=== PATIENT | male | born 1970 | race Caucasian/White ===

== ENCOUNTER 2016-10-06 15:00 | Emergency (ER) | payer MEDICARE, MEDICAID | END 2016-10-06 15:27 | disposition left against medical advice (07) | LOC: M ED 15:00 | DX: R68.89 Other general symptoms and signs (principal); Z53.20 Procedure and treatment not carried out because of patient's decision for unspecified reasons ==

== ENCOUNTER → 2016-10-09 | Outpatient (CLI) | payer MEDICARE | LOC: M SMT 08:04 | PROVIDERS: ATTEND Urology | DX: E29.1 Testicular hypofunction (principal) ==

== ENCOUNTER → 2016-12-06 | Outpatient (CLI) | payer MEDICARE ==
--- NOTE | 2016-12-07 09:17 | REP ---
MR CERVICAL SPINE WITHOUT CONTRAST: HISTORY: Neck pain. Facet hypertrophy is present in the left at the C3-4 level. This produces minimal narrowing of the left C3 neural foramen. The right C3 neural foramina is patent. A disc bulge and small central disc protrusion are present at the C4-5 level. There is minimal spinal cord compression. Bilateral uncinate process hypertrophy is present. This produces mild narrowing of the C4 neural foramina. A disc bulge and small left paracentral disc protrusion with associated osteophyte formation are present at the C5-6 level. There is minimal spinal cord compression. Bilateral uncinate process hypertrophy is present. This produces mild and moderate narrowing of the right and left C5 neural foramina respectively. A disc bulge and small central disc protrusion are present at the C6-7 level. There is minimal spinal cord compression. Bilateral uncinate process hypertrophy is present. This produces mild and moderate narrowing of the right and left C6 neural foramina respectively. A small left paracentral and intraforaminal disc protrusion are present at the C7-T1 level. There is minimal effacement of the thecal sac without spinal cord compression. Uncinate process hypertrophy is present on the left. There is mild narrowing of the left C7 neural foramen. The right C7 neural foramen is patent. There is no other disc bulge or herniation. The remaining neural foramina are patent. The spinal cord is normal in signal intensity. The C5-6 and C6-7 intervertebral discs are decreased in height consistent with disc degeneration. Normal signal intensity is present in the cervical vertebral bodies. A hemangioma is present in the T1 vertebral body. IMPRESSION: There is cervical spondylosis at the C3-4 through C7-T1 levels most significant at the C4-5 through C6-7 levels where there is minimal spinal cord compression. Signed by Bhaskar Claire MD 12/07/2016 09:28 A
--- NOTE | 2016-12-07 09:24 | REP ---
MR LUMBAR SPINE WITHOUT CONTRAST: HISTORY: Back pain. Decreased signal intensity on T2-weighted images is present in the L3-4 intervertebral disc. The disc is decreased in height. These findings are consistent with disc degeneration. There is no disc bulge or herniation at the L1-2, L2-3 and L5-S1 levels. The nerves exit the neural foramina without compression. A diffuse disc bulge is present at the L3-4 level. There is minimal compression of the thecal sac. The L3 nerves exit the neural foramina without compression. A diffuse disc bulge is present at the L4-5 level. There is minimal compression of the thecal sac. The L4 nerves exit the neural foramina without compression. The conus medullaris is normal in appearance terminating at the level of the T12-L1 intervertebral disc. Normal signal intensity is present in the lumbar vertebral bodies. IMPRESSION: Diffuse disc bulges at the L3-4 and L4-5 levels with minimal thecal sac compression. Signed by Bhaskar Claire MD 12/07/2016 09:28 A
== END ==
LOC: M RAD 16:25
PROVIDERS: ATTEND Physician Assistant Medical
DX: M47.892 Other spondylosis, cervical region (principal); M51.26 Other intervertebral disc displacement, lumbar region

== ENCOUNTER 2017-03-13 19:01 | Emergency (ER) | payer MEDICARE, MEDICAID ==
[~2017-03-13] VITALS: Ht 165.1 cm; Wt 57.5 kg
[2017-03-13] MEDS ORDERED: SERT-138 (19:12)
[2017-03-13] MEDS ORDERED: OXYC-517 (19:12)
[2017-03-13] MEDS ORDERED: PROAAER10 (19:12)
[2017-03-13] MEDS ORDERED: FAMO1TAB11 (19:12)
[2017-03-13] MEDS ORDERED: MONT10TA2 (19:12)
[2017-03-13] MEDS ORDERED: SPIR1CAP (19:12)
[2017-03-13] MEDS ORDERED: LISI-538 (19:12)
[2017-03-13] MEDS ORDERED: ACYC400T (19:12)
[2017-03-13] MEDS ORDERED: ROPI3TAB (19:12)
[2017-03-13] MEDS ORDERED: ALBU17IN (19:12)
[2017-03-13] MEDS ORDERED: ZANA4TAB (19:12)
[2017-03-13] MEDS ORDERED: CLON0.5T (19:12)
--- NOTE | 2017-03-13 19:58 | REP ---
Clinical: Pain without trauma . Technique: AP, lateral, bilateral oblique views of the right elbow. Findings: No acute fracture or dislocation is appreciated. Joint spaces and surrounding soft tissues appear normal. Lateral view demonstrates normal positioning to the anterior and posterior fat pads without evidence for effusion/hemarthrosis. No subcutaneous emphysema or foreign body identified. Impression: Normal age appropriate right elbow radiographs. Signed by Emery Nails MD 03/13/2017 07:49 P
[2017-03-13 20:21] VITALS: BP 137/74
== END 2017-03-13 20:26 | disposition home or self-care (01) ==
LOC: M ED 19:01
DX: S53.431A Radial collateral ligament sprain of right elbow, initial encounter (principal); X58.XXXA Exposure to other specified factors, initial encounter; Y92.019 Unspecified place in single-family (private) house as the place of occurrence of the external cause; Y93.89 Activity, other specified; Y99.8 Other external cause status; J45.909 Unspecified asthma, uncomplicated; I10 Essential (primary) hypertension; F17.210 Nicotine dependence, cigarettes, uncomplicated; Z79.899 Other long term (current) drug therapy; Z85.6 Personal history of leukemia

== ENCOUNTER → 2017-03-30 | Outpatient (CLI) | payer MEDICARE, MEDICAID ==
[~2017-03-30] MED LIST: ACYC400T; ALBU17IN; CLON0.5T; FAMO1TAB11; LISI-538; MONT10TA2; OXYC-517; PROAAER10; ROPI3TAB; SERT-138; SPIR1CAP; ZANA4TAB
[2017-03-30 13:24] LABS: BASO % 0.5 % (0.0-1.0); EOS # 0.1 K/mm3 (0.0-0.50); EOS % 0.9 % (0.0-3.0); LYMPH # 2.5 K/mm3 (1.5-4.5); LYMPH % 24.3 % (24.0-44.0); MEAN CORPUSCULAR HEMOGLOBIN 33.8 pg (27.0-33.0); MEAN CORPUSCULAR HGB CONC 35.5 g/dl (32.0-36.5); MEAN CORPUSCULAR VOLUME 95.3 fl (80.0-96.0); MONO # 0.7 K/mm3 (0.0-0.8); MONO % 6.7 % (0.0-5.0); NEUTROPHILS # 6.7 K/mm3 (1.8-7.7); NEUTROPHILS % 64.8 % (36.0-66.0); WHITE BLOOD COUNT 10.2 K/mm3 (4.0-10.0)
[2017-03-30 14:09] LABS: ALBUMIN 3.6 GM/DL (3.2-5.2); ALBUMIN/GLOBULIN RATIO 1.33 (1.00-1.93); ALKALINE PHOSPHATASE 89 U/L (45-117); ALT/SGPT 19 U/L (12-78); ANION GAP 5 MEQ/L (8-16); AST/SGOT 16 U/L (15-37); BILIRUBIN,TOTAL 0.3 MG/DL (0.2-1.0); BLOOD UREA NITROGEN 17 MG/DL (7-18); CALCIUM LEVEL 8.8 MG/DL (8.5-10.1); CARBON DIOXIDE LEVEL 27 MEQ/L (21-32); CHLORIDE LEVEL 102 MEQ/L (98-107); CREATININE FOR GFR 0.65 MG/DL (0.70-1.30); GLOMERULAR FILTRATION RATE > 60.0 (>60); GLUCOSE, FASTING 181 MG/DL (70-105); POTASSIUM SERUM 4.4 MEQ/L (3.5-5.1); SODIUM LEVEL 134 MEQ/L (136-145); TOTAL PROTEIN 6.3 GM/DL (6.4-8.2)
== END ==
LOC: M LAB 12:38
PROVIDERS: ATTEND Physician Assistant Medical
DX: C95.11 Chronic leukemia of unspecified cell type, in remission (principal)

== ENCOUNTER → 2017-12-31 | Outpatient (CLI) | payer MEDICAID, MEDICARE ==
[2017-12-31 11:14] LABS: HEMATOCRIT 45.3 % (42.0-52.0); MEAN CORPUSCULAR HEMOGLOBIN 32.6 pg (27.0-33.0); MEAN CORPUSCULAR HGB CONC 35.3 g/dl (32.0-36.5); MEAN CORPUSCULAR VOLUME 92.3 fl (80.0-96.0); PLATELET COUNT, AUTOMATED 298 10^3/uL (150-450); RED BLOOD COUNT 4.91 10^6/uL (4.30-6.10); WHITE BLOOD COUNT 9.3 10^3/uL (4.0-10.0)
[2017-12-31 11:51] LABS: ERYTHROCYTE SEDIMENTATION RATE 7 mm/hr (0-15)
[2017-12-31 12:26] LABS: ALBUMIN 3.7 GM/DL (3.2-5.2); ALBUMIN/GLOBULIN RATIO 1.09 (1.00-1.93); ALKALINE PHOSPHATASE 75 U/L (45-117); ALT/SGPT 14 U/L (12-78); ANION GAP 3 MEQ/L (8-16); AST/SGOT 14 U/L (7-37); BILIRUBIN,TOTAL 0.4 MG/DL (0.2-1.0); BLOOD UREA NITROGEN 12 MG/DL (7-18); CALCIUM LEVEL 9.1 MG/DL (8.5-10.1); CARBON DIOXIDE LEVEL 30 MEQ/L (21-32); CHLORIDE LEVEL 103 MEQ/L (98-107); CHOLESTEROL LEVEL 253 MG/DL (<200); CHOLESTEROL RISK RATIO 5.382 (<5); CREATININE FOR GFR 0.65 MG/DL (0.70-1.30); GLOMERULAR FILTRATION RATE > 60.0 (>60); GLUCOSE, FASTING 113 MG/DL (70-100); HDL CHOLESTEROL 47 MG/DL (>40); IRON (FE) 76 UG/DL (65-175); LDL CHOLESTEROL 177.6 MG/DL (<100); NON-HDL-C 206 MG/DL; PERCENT SATURATION 25.4 % (19.7-50.0); POTASSIUM SERUM 4.6 MEQ/L (3.5-5.1); SODIUM LEVEL 136 MEQ/L (136-145); TOTAL IRON BINDING CAPACITY 299 UG/DL (250-450); TOTAL PROTEIN 7.1 GM/DL (6.4-8.2); TRIGLYCERIDES LEVEL 142 MG/DL (<150)
== END ==
LOC: M LAB 10:27
DX: D64.9 Anemia, unspecified (principal); R53.83 Other fatigue; E03.9 Hypothyroidism, unspecified
CPT/HCPCS: 71046

== ENCOUNTER → 2018-01-03 | Outpatient (CLI) | payer MEDICARE, MEDICAID | LOC: M OUTALCOH 11:20 | DX: F12.10 Cannabis abuse, uncomplicated (principal) | CPT/HCPCS: H0001 ==

== ENCOUNTER → 2018-01-14 | Outpatient (RCR) | payer MEDICARE, MEDICAID | LOC: M OUTALCOH 13:13 | DX: F12.20 Cannabis dependence, uncomplicated (principal); F17.200 Nicotine dependence, unspecified, uncomplicated | CPT/HCPCS: 90834 ==

== ENCOUNTER 2018-01-24 15:00 | Outpatient (RCR) | payer MEDICARE, MEDICAID | END 2018-02-14 | LOC: M OUTALCOH 02-14 13:00 | DX: F12.20 Cannabis dependence, uncomplicated (principal); F17.200 Nicotine dependence, unspecified, uncomplicated | CPT/HCPCS: 90834 ==

== ENCOUNTER 2018-02-22 14:37 | Outpatient (RCR) | payer MEDICARE, MEDICAID | END 2018-03-16 | LOC: M OUTALCOH 14:37 | DX: F12.20 Cannabis dependence, uncomplicated (principal); F17.200 Nicotine dependence, unspecified, uncomplicated | CPT/HCPCS: 90832 ==

== ENCOUNTER 2018-03-21 11:41 | Outpatient (RCR) | payer MEDICARE, MEDICAID | END 2018-04-16 | LOC: M OUTALCOH 03-27 08:30 | DX: F12.20 Cannabis dependence, uncomplicated (principal); F17.200 Nicotine dependence, unspecified, uncomplicated | CPT/HCPCS: 90834 ==

== ENCOUNTER 2018-05-28 16:45 | Outpatient (RCR) | payer MEDICARE, MEDICAID | END 2018-06-16 | LOC: M OUTALCOH 16:45 | DX: F12.20 Cannabis dependence, uncomplicated (principal); F17.200 Nicotine dependence, unspecified, uncomplicated | CPT/HCPCS: 90832 ==

== ENCOUNTER 2018-06-25 14:52 | Outpatient (RCR) | payer MEDICARE, MEDICAID | END 2018-07-17 | LOC: M OUTALCOH 07-16 11:00 | DX: F12.20 Cannabis dependence, uncomplicated (principal); F17.200 Nicotine dependence, unspecified, uncomplicated | CPT/HCPCS: 90834 ==

== ENCOUNTER 2018-07-30 11:00 | Outpatient (RCR) | payer MEDICARE, MEDICAID | END 2018-08-16 | LOC: M OUTALCOH 11:00 | DX: F12.20 Cannabis dependence, uncomplicated (principal); F17.200 Nicotine dependence, unspecified, uncomplicated | CPT/HCPCS: 90834 ==

== ENCOUNTER 2018-08-28 08:00 | Outpatient (RCR) | payer MEDICARE, MEDICAID ==
[~2018-08-28 08:00] MED LIST changes: -CLON0.5T; +CLON0.5T8; -ROPI3TAB; +ROPI3TAB3
== END 2018-09-16 ==
LOC: M OUTALCOH 08:00
PROVIDERS: ATTEND Psychiatry & Neurology Psychiatry
DX: F12.20 Cannabis dependence, uncomplicated (principal); F17.200 Nicotine dependence, unspecified, uncomplicated

== ENCOUNTER → 2019-05-30 | Outpatient (CLI) | payer MEDICARE, MEDICAID ==
[2019-05-30 10:32] LABS: HEMATOCRIT 48.2 % (42.0-52.0); HEMOGLOBIN 16.6 g/dl (13.5-17.5); MEAN CORPUSCULAR HEMOGLOBIN 31.9 pg (27.0-33.0); MEAN CORPUSCULAR HGB CONC 34.4 g/dl (32.0-36.5); MEAN CORPUSCULAR VOLUME 92.7 fl (80.0-96.0); PLATELET COUNT, AUTOMATED 249 10^3/uL (150-450); WHITE BLOOD COUNT 7.9 10^3/uL (4.0-10.0)
[2019-05-30 11:13] LABS: ALT/SGPT 17 U/L (12-78); BILIRUBIN,TOTAL 0.7 MG/DL (0.2-1.0); BLOOD UREA NITROGEN 10 MG/DL (7-18); CARBON DIOXIDE LEVEL 27 MEQ/L (21-32); CHLORIDE LEVEL 102 MEQ/L (98-107); CHOLESTEROL LEVEL 276 MG/DL (<200); CHOLESTEROL RISK RATIO 4.119 (<5); CREATININE FOR GFR 0.75 MG/DL (0.70-1.30); GLOMERULAR FILTRATION RATE > 60.0 (>60); GLUCOSE, FASTING 104 MG/DL (70-100); HDL CHOLESTEROL 67 MG/DL (>40); LDL CHOLESTEROL 194 MG/DL (<100); NON-HDL-C 209 MG/DL; POTASSIUM SERUM 5.2 MEQ/L (3.5-5.1); SODIUM LEVEL 136 MEQ/L (136-145); THYROXINE (T4) 9.4 UG/DL (4.5-12.0); TOTAL 25(OH) VITAMIN D 39.5 NG/ML (30.0-100.0); TOTAL PROTEIN 7.3 GM/DL (6.4-8.2); TRIGLYCERIDES LEVEL 74 MG/DL (<150)
[2019-05-30 11:14] LABS: TESTOSTERONE 375 NG/DL (241-827); TOTAL T3 128.8 NG/DL (60.0-181.0)
== END ==
LOC: M LAB 09:58
PROVIDERS: ATTEND Family Medicine
DX: I10 Essential (primary) hypertension (principal); R53.83 Other fatigue; E03.9 Hypothyroidism, unspecified

== ENCOUNTER → 2020-01-12 | Outpatient (REF) | payer MEDICARE ==
[~2020-01-12] MED LIST changes: +CLON0.5T2; -CLON0.5T8; -MONT10TA2; +MONT10TA4
[2020-01-12 12:15] LABS: BASO # 0.1 10^3/uL (0.0-0.2); BASO % 1.4 % (0.0-1.0); EOS # 0.1 10^3/uL (0.0-0.5); EOS % 1.7 % (0.0-3.0); HEMATOCRIT 48.8 % (42.0-52.0); HEMOGLOBIN 16.5 g/dl (13.5-17.5); LYMPH # 2.5 10^3/uL (1.5-5.0); LYMPH % 38.9 % (24.0-44.0); MEAN CORPUSCULAR HEMOGLOBIN 31.3 pg (27.0-33.0); MEAN CORPUSCULAR HGB CONC 33.8 g/dl (32.0-36.5); MEAN CORPUSCULAR VOLUME 92.4 fl (80.0-96.0); MONO # 0.8 10^3/uL (0.0-0.8); MONO % 11.8 % (0.0-5.0); NEUTROPHILS # 2.9 10^3/uL (1.5-8.5); NEUTROPHILS % 45.9 % (36.0-66.0); PLATELET COUNT, AUTOMATED 285 10^3/uL (150-450); RED BLOOD COUNT 5.28 10^6/uL (4.30-6.10); WHITE BLOOD COUNT 6.4 10^3/uL (4.0-10.0)
[2020-01-12 12:28] LABS: ALBUMIN 4.2 GM/DL (3.2-5.2); ALT/SGPT 23 U/L (12-78); BILIRUBIN,TOTAL 0.5 MG/DL (0.2-1.0); BLOOD UREA NITROGEN 7 MG/DL (7-18); CALCIUM LEVEL 9.8 MG/DL (8.5-10.1); CARBON DIOXIDE LEVEL 30 MEQ/L (21-32); CHLORIDE LEVEL 102 MEQ/L (98-107); CHOLESTEROL LEVEL 282 MG/DL (<200); CHOLESTEROL RISK RATIO 5.423 (<5); FREE T4 1.08 NG/DL (0.76-1.46); GLOMERULAR FILTRATION RATE > 60.0 (>56); GLUCOSE, FASTING 107 MG/DL (70-100); HDL CHOLESTEROL 52 MG/DL (>40); LDL CHOLESTEROL 203 MG/DL (<100); NON-HDL-C 230 MG/DL; POTASSIUM SERUM 5.5 MEQ/L (3.5-5.1); SODIUM LEVEL 135 MEQ/L (136-145); TOTAL PROTEIN 7.9 GM/DL (6.4-8.2); TRIGLYCERIDES LEVEL 134 MG/DL (<150)
[2020-01-14 10:51] LABS: HEPATITIS B SURFACE ANTIGEN NEGATIVE (NEGATIVE)
[2020-01-14 11:19] LABS: HEP C VIRUS AB INDEX SOURCE PT 0.1 INDEX (0.0-0.8)
[2020-01-14 11:20] LABS: HIV SCREEN CENTAUR SOURCE NEGATIVE (NEGATIVE)
== END ==
LOC: M SFHCPLAZ 10:04
PROVIDERS: ATTEND Physician Assistant Medical
DX: I10 Essential (primary) hypertension (principal); N52.1 Erectile dysfunction due to diseases classified elsewhere; Z13.220 Encounter for screening for lipoid disorders; Z85.6 Personal history of leukemia
CPT/HCPCS: 36415; 80053; 80061; 84439; 84443; 85025; 86803; 87340; 87389; G0463

== ENCOUNTER → 2020-11-30 | Outpatient (REF) | payer MEDICARE, MEDICAID ==
[~2020-11-30] MED LIST changes: -LISI-538; +LISI20TA33; +MONT10TA10; -MONT10TA4
== END ==
LOC: M LAB REF 11:33
PROVIDERS: ATTEND Nurse Practitioner Adult Health
DX: N52.9 Male erectile dysfunction, unspecified (principal)

== ENCOUNTER → 2021-03-04 | Outpatient (REF) | payer MEDICARE, MEDICAID ==
[~2021-03-04] MED LIST changes: +ACYC1TAB; -ACYC400T
[2021-03-07 14:49] LABS: HEPATITIS A ANTIBODY IGM NEGATIVE (NEGATIVE); HEPATITIS B CORE ANTIBODY IGM NEGATIVE (NEGATIVE); HEPATITIS B SURFACE ANTIGEN NEGATIVE (NEGATIVE); HEPATITIS C VIRUS ABY INDEX < 0.0 INDEX (<0.8)
== END ==
LOC: M LAB REF 11:37
PROVIDERS: ATTEND Nurse Practitioner Adult Health
DX: R74.01 Elevation of levels of liver transaminase levels (principal)

== ENCOUNTER → 2021-03-30 | Outpatient (CLI) | payer MEDICARE, MEDICAID ==
--- NOTE | 2021-03-30 09:40 | REP ---
INDICATION: ELEVATED LFT'S COMPARISON: None. TECHNIQUE: Real time melissa scale ultrasound examination using curved array transducer. FINDINGS: Liver is normal in contour, size, and echogenicity without focal hepatic lesions identified. Incidental 10 mm hyperechoic focus in the right lobe likely small hemangioma. Pancreas is incompletely evaluated due to interposed bowel gas. The gallbladder is normal and without gallstones, wall thickening, or pericholecystic fluid. No biliary ductal dilatation is appreciated and the common bile duct measures 2.3 mm diameter. Right kidney is normal in reniform shape without hydronephrosis and measures 10.8 x 5.2 x 4.0 cm. No ascites in the visualized right upper quadrant. IMPRESSION: Essentially normal limited right upper quadrant ultrasound <Electronically signed by Emery Nails > 03/30/21 [id number]
== END ==
LOC: M RAD 08:32
PROVIDERS: ATTEND Nurse Practitioner Adult Health
DX: R74.01 Elevation of levels of liver transaminase levels (principal)

== ENCOUNTER → 2021-06-07 | Outpatient (REF) | payer MEDICARE, MEDICAID ==
[2021-06-08 11:35] LABS: HEMATOCRIT 47.7 % (42.0-52.0)
[2021-06-08 12:04] LABS: PERCENT SATURATION 30.4 % (19.7-50.0)
== END ==
LOC: M LAB REF 11:00
PROVIDERS: ATTEND Nurse Practitioner Adult Health
DX: R74.01 Elevation of levels of liver transaminase levels (principal)

== ENCOUNTER → 2021-09-07 | Outpatient (REF) | payer MEDICARE, MEDICAID ==
[2021-09-13 03:08] LABS: ANTINUCLEAR ANTIBODIES DIRECT Negative (Negative); COPPER PLASMA 147 ug/dL (69-132); SJOGREN'S ANTI SS-A <0.2 AI (0.0-0.9); SJOGREN'S ANTI SS-B <0.2 AI (0.0-0.9)
== END ==
LOC: M LAB REF 11:57
PROVIDERS: ATTEND Nurse Practitioner Adult Health
DX: R74.01 Elevation of levels of liver transaminase levels (principal); Z85.6 Personal history of leukemia

== ENCOUNTER → 2021-09-07 | Outpatient (CLI) | payer MEDICARE, MEDICAID ==
--- NOTE | 2021-09-07 10:52 | REP ---
INDICATION: COUGH, SMOKER COMPARISON: 12/31/2017 TECHNIQUE: PA and lateral. FINDINGS: The mediastinum and cardiac silhouette are normal. The lung camacho are clear and without acute consolidation, effusion, or pneumothorax. The skeletal structures are intact and normal. IMPRESSION: No acute cardiopulmonary process. <Electronically signed by Emery Nails > 09/07/21 [id number]
== END ==
LOC: M WUC 09:57
PROVIDERS: ATTEND Nurse Practitioner Adult Health
DX: R05.9 Cough, unspecified (principal); R73.01 Impaired fasting glucose; Z85.6 Personal history of leukemia

== ENCOUNTER → 2021-10-12 | Outpatient (CLI) | payer MEDICARE, MEDICAID ==
[~2021-10-12] MED LIST changes: -MONT10TA10; +MONT10TA97
== END ==
LOC: M PLAIMG 08:44
PROVIDERS: ATTEND Nurse Practitioner Adult Health
DX: R05.3 Chronic cough (principal)

== ENCOUNTER → 2021-11-02 | Outpatient (CLI) | payer MEDICARE, MEDICAID ==
[2021-11-02 15:34] LABS: ALBUMIN 3.8 GM/DL (3.2-5.2); BILIRUBIN,DIRECT 0.1 MG/DL (0.0-0.2); BILIRUBIN,TOTAL 0.4 MG/DL (0.2-1.0); FREE T4 0.9 NG/DL (0.76-1.46); PERCENT SATURATION 29.3 % (19.7-50.0); THYROID STIMULATING HORMONE 1.39 uIU/ML (0.358-3.740); TOTAL PROTEIN 7.3 GM/DL (6.4-8.2)
[2021-11-10 11:08] LABS: ANCA-ATYPICAL <1:20 titer (Neg:<1:20); ANTI-MITOCHONDRIAL ANTIBODY 28.5 Units (0.0-20.0); ANTINUCLEAR ANTIBODIES DIRECT Negative (Negative); CYTOPLASMIC NEUTROP AB ANCA-C <1:20 titer (Neg:<1:20); LIVER-KIDNEY MICROSOMAL ABY <20.1 Units (0.0-20.0); PERINUCLEAR AB ANCA-P <1:20 titer (Neg:<1:20)
== END ==
LOC: M RAD 14:28
PROVIDERS: ATTEND Internal Medicine Gastroenterology
DX: R79.0 Abnormal level of blood mineral (principal); Z79.899 Other long term (current) drug therapy

== ENCOUNTER → 2021-11-18 | Outpatient (CLI) | payer MEDICARE, MEDICAID | LOC: M LAB 13:20 | PROVIDERS: ATTEND Internal Medicine Gastroenterology | DX: R79.0 Abnormal level of blood mineral (principal) ==

== ENCOUNTER → 2022-01-20 | Outpatient (CLI) | payer MEDICARE, MEDICAID | LOC: M RAD 07:57 | PROVIDERS: ATTEND Internal Medicine Gastroenterology | DX: R74.8 Abnormal levels of other serum enzymes (principal); K83.01 Primary sclerosing cholangitis ==

== ENCOUNTER → 2022-02-13 | Outpatient (CLI) | payer MEDICARE, MEDICAID ==
[2022-02-13 15:57] LABS: HEMATOCRIT 42.7 % (42.0-52.0); HEMOGLOBIN 14.8 g/dl (13.5-17.5); MEAN CORPUSCULAR HEMOGLOBIN 33.3 pg (27.0-33.0); MEAN CORPUSCULAR HGB CONC 34.7 g/dl (32.0-36.5); PLATELET COUNT, AUTOMATED 272 10^3/uL (150-450); RED BLOOD COUNT 4.45 10^6/uL (4.30-6.10); WHITE BLOOD COUNT 12.9 10^3/uL (4.0-10.0)
[2022-02-13 16:09] LABS: INR 0.88; PROTHROMBIN TIME 12.3 SECONDS (12.7-14.5)
== END ==
LOC: M LAB 15:22
PROVIDERS: ATTEND Internal Medicine Gastroenterology
DX: R79.0 Abnormal level of blood mineral (principal)

== ENCOUNTER → 2022-02-17 | Outpatient (CLI) | payer MEDICARE, MEDICAID ==
[~2022-02-17] MED LIST changes: +LIDOCAINE 1% MDV 20ML VIAL As Ordered ONE
[2022-02-17 10:00] VITALS: BP 145/87
== END ==
LOC: M IRPRO 07:46
PROVIDERS: ATTEND Internal Medicine Gastroenterology
DX: R79.0 Abnormal level of blood mineral (principal); K74.3 Primary biliary cirrhosis

== ENCOUNTER → 2022-02-25 | Outpatient (CLI) | payer MEDICARE, MEDICAID ==
[~2022-02-25] MED LIST changes: -LIDOCAINE 1% MDV 20ML VIAL As Ordered ONE
[2022-02-25 16:28] LABS: PERCENT SATURATION 21.9 % (19.7-50.0)
== END ==
LOC: M LAB 14:24
PROVIDERS: ATTEND Internal Medicine Gastroenterology
DX: R79.0 Abnormal level of blood mineral (principal)

== ENCOUNTER → 2022-03-03 | Outpatient (CLI) | payer MEDICARE, MEDICAID | LOC: M WHC 07:33 | PROVIDERS: ATTEND Internal Medicine Gastroenterology | DX: R79.0 Abnormal level of blood mineral (principal) ==

== ENCOUNTER → 2023-02-03 | Outpatient (CLI) | payer MEDICARE, MEDICAID ==
[2023-02-03 09:43] LABS: ALBUMIN 3.7 G/DL (3.2-5.2); BILIRUBIN,DIRECT 0.2 MG/DL (<0.4); BILIRUBIN,TOTAL 0.5 MG/DL (0.3-1.2); PERCENT SATURATION 37.6 % (19.7-50.0); TOTAL PROTEIN 6.6 G/DL (5.7-8.2)
[2023-02-03 09:45] LABS: FERRITIN 148.4 NG/ML (10.5-307.3)
== END ==
LOC: M LAB 08:43
PROVIDERS: ATTEND Internal Medicine Gastroenterology
DX: E83.19 Other disorders of iron metabolism (principal); K74.3 Primary biliary cirrhosis

== ENCOUNTER → 2023-02-23 | Outpatient (REF) | payer MEDICARE, MEDICAID ==
[2023-02-25 14:07] LABS: % CD4+ LYMPHS 43.3 % (30.8-58.5); ABSOLUTE CD4 HELPER 1602 /uL (359-1519); BASOPHILS 2 % (Not Estab.); BASOPHILS ABSOLUTE 0.1 x10E3/uL (0.0-0.2); EOSINOPHILS 2 % (Not Estab.); EOSINOPHILS ABSOLUTE 0.1 x10E3/uL (0.0-0.4); HCT 49.2 % (37.5-51.0); HGB 16.9 g/dL (13.0-17.7); LYMPHOCYTES 49 % (Not Estab.); LYMPHOCYTES ABSOLUTE 3.7 x10E3/uL (0.7-3.1); MCH 32.4 pg (26.6-33.0); MCHC 34.3 g/dL (31.5-35.7); MCV 94 fL (79-97); MONOCYTES 10 % (Not Estab.); MONOCYTES ABSOLUTE 0.8 x10E3/uL (0.1-0.9); NEUTROPHILS 37 % (Not Estab.); NEUTROPHILS ABSOLUTE 2.7 x10E3/uL (1.4-7.0); PLT 310 x10E3/uL (150-450); RBC 5.21 x10E6/uL (4.14-5.80); RDW 13.4 % (11.6-15.4); WBC 7.4 x10E3/uL (3.4-10.8)
== END ==
LOC: M LAB REF 12:25
PROVIDERS: ATTEND Nurse Practitioner Family
DX: Z85.6 Personal history of leukemia (principal); Z79.899 Other long term (current) drug therapy

== ENCOUNTER → 2023-06-05 | Outpatient (CLI) | payer MEDICARE, MEDICAID ==
[~2023-06-05] MED LIST changes: +ROPI3TAB18; -ROPI3TAB3
== END ==
LOC: M WUC 11:26
PROVIDERS: ATTEND Nurse Practitioner Family
DX: G89.29 Other chronic pain (principal); M19.011 Primary osteoarthritis, right shoulder; M19.012 Primary osteoarthritis, left shoulder

== ENCOUNTER → 2024-05-16 | Outpatient (REF) | payer MEDICARE, MEDICAID | LOC: EEVIPCON 12:47 → M LAB REF 12:47 | PROVIDERS: ATTEND Physician Assistant | DX: L98.9 Disorder of the skin and subcutaneous tissue, unspecified (principal) ==

== ENCOUNTER → 2024-12-16 | Outpatient (CLI) | payer MEDICARE, MEDICAID ==
[~2024-12-16] MED LIST changes: +PROHANCE 279.3MG/ML 15ML VIAL As Ordered ONE
== END ==
LOC: M RAD 16:43
PROVIDERS: ATTEND Nurse Practitioner Family
DX: R29.2 Abnormal reflex (principal); R55 Syncope and collapse
CPT/HCPCS: 70553; A9576

== ENCOUNTER 2025-02-03 09:38 | Emergency (ER) | payer MEDICARE, MEDICAID ==
[~2025-02-03] VITALS: Ht 162.6 cm; Wt 59.5 kg
[~2025-02-03 09:38] MED LIST changes: -IBUP-1114 PO
[2025-02-03] MEDS ORDERED: IBUP-1114 PO (10:13)
[2025-02-03 11:35] VITALS: BP 132/82; TEMP 97.9; O2SAT 99
== END 2025-02-03 11:39 | disposition home or self-care (01) ==
LOC: M ED 09:38
DX: S01.01XA Laceration without foreign body of scalp, initial encounter (principal); W13.2XXA Fall from, out of or through roof, initial encounter; Y92.008 Other place in unspecified non-institutional (private) residence as the place of occurrence of the external cause; Y93.9 Activity, unspecified; Y99.9 Unspecified external cause status; I10 Essential (primary) hypertension; H40.9 Unspecified glaucoma; Z79.899 Other long term (current) drug therapy; F17.210 Nicotine dependence, cigarettes, uncomplicated; R91.8 Other nonspecific abnormal finding of lung field; J43.9 Emphysema, unspecified

== ENCOUNTER → 2025-02-03 | Outpatient (CLI) | payer MEDICARE, MEDICAID ==
[~2025-02-03] MED LIST changes: +ACYC-438; -ACYC1TAB; +IBUP-1114 PO; -PROHANCE 279.3MG/ML 15ML VIAL As Ordered ONE
== END ==
LOC: M RAD 09:13
PROVIDERS: ATTEND Nurse Practitioner Family
DX: F17.210 Nicotine dependence, cigarettes, uncomplicated (principal); R91.8 Other nonspecific abnormal finding of lung field; J43.9 Emphysema, unspecified

== ENCOUNTER 2025-08-19 09:11 | Emergency (ER) | payer MEDICARE, MEDICAID ==
[~2025-08-19] VITALS: Ht 165.1 cm; Wt 59.2 kg
[~2025-08-19 09:11] MED LIST changes: +IBUP-1114 PO
[2025-08-19 12:00] VITALS: BP 166/68; TEMP 97.6; O2SAT 98
== END 2025-08-19 12:21 | disposition home or self-care (01) ==
LOC: M ED 09:11 → EDBD 09:11 → M ED 12:21
DX: S00.81XA Abrasion of other part of head, initial encounter (principal); S80.02XA Contusion of left knee, initial encounter; S80.01XA Contusion of right knee, initial encounter; W19.XXXA Unspecified fall, initial encounter; Y92.410 Unspecified street and highway as the place of occurrence of the external cause; Y93.9 Activity, unspecified; Y99.9 Unspecified external cause status; I10 Essential (primary) hypertension; J45.909 Unspecified asthma, uncomplicated; F17.200 Nicotine dependence, unspecified, uncomplicated; Z79.899 Other long term (current) drug therapy; Z91.040 Latex allergy status